=== PATIENT | female | born 1940 | race Caucasian/White ===

== ENCOUNTER 2023-01-08 10:53 | Emergency (ER) | payer MEDICARE, OTHER ==
[2023-01-08 12:07] LABS: BASOPHILS PERCENT AUTO 0.4 % (0.2-1.5); EOSINOPHILS ABSOLUTE AUTO 0.2 x10-3/uL (0.0-0.8); EOSINOPHILS PERCENT AUTO 3.3 % (0.6-8.1); HEMATOCRIT 38.4 % (34.2-48.2); HEMOGLOBIN 13.3 g/dL (11.4-15.5); LYMPHOCYTES ABSOLUTE AUTO 0.8 x10-3/uL (1.0-4.4); LYMPHOCYTES PERCENT AUTO 15.1 % (18.4-52.1); MEAN CORPUSCULAR HEMOGLOBIN 32.2 pg (23.9-33.9); MEAN CORPUSCULAR HGB CONC 34.7 g/dL (31.9-34.8); MEAN CORPUSCULAR VOLUME 92.8 fL (76.7-100.5); MEAN PLATELET VOLUME 7.4 fL (7.1-12.4); MONOCYTES ABSOLUTE AUTO 0.6 x10-3/uL (0.3-1.0); MONOCYTES PERCENT AUTO 11.8 % (4.4-15.7); NEUTROPHILS ABSOLUTE AUTO 3.6 x10-3/uL (1.5-6.3); NEUTROPHILS PERCENT AUTO 69.4 % (30.8-76.2); PLATELET COUNT,PLT 244 x10(3)uL (151-488); RED BLOOD CELL COUNT 4.13 x10(6)uL (3.60-5.20); RED CELL DISTRIBUTION WIDTH 14.2 % (12.3-16.5); WHITE BLOOD CELL COUNT,WBC 5.2 x10-3/uL (3.0-10.3)
[2023-01-08 12:08] LABS: BLOOD UREA NITROGEN,BUN 21 mg/dL (7-18); BUN/CREATININE RATIO 19.1 (9-20); CALCIUM 9.7 mg/dL (8.6-10.2); CARBON DIOXIDE,CO2 32 mmol/L (21-32); CHLORIDE,CL 99 mmol/L (100-110); CREATININE 1.1 mg/dL (0.55-1.02); EST CRCL DRUG DOSING (CG) 32.26 mL/min; ESTIMATED GFR 51 mL/min (>60); GLUCOSE RANDOM 106 mg/dL (80-116); POTASSIUM,K 3.9 mmol/L (3.5-5.3); SODIUM,NA 137 mmol/L (135-145)
[2023-01-08 12:14] LABS: ALANINE AMINOTRANSFERASE,ALT 38 U/L (12-36); ALBUMIN 3.7 g/dL (3.2-4.6); ALKALINE PHOSPHATASE 140 IU/L (56-112); ASPARTATE AMNIOTRANSFERASE,AST 32 IU/L (5-25); BILIRUBIN TOTAL 0.5 mg/dL (0.1-1.3); MAGNESIUM 1.7 mg/dL (1.8-2.5); PROTEIN TOTAL,TP 7.4 g/dL (6.0-8.0)
[2023-01-08 12:16] LABS: C-REACTIVE PROTEIN 0.32 mg/dL (<0.33); TROPONIN I 10.4 pg/mL (4.0-60.3)
[2023-01-08] MEDS ORDERED: Magnesium Sulfate/Water 2 GM in Premix Bag 1 BAG IV ONE (12:29)
[2023-01-08] MEDS ORDERED: Sodium Chloride 0.9% 1,000 ML IV ONE (12:29)
[2023-01-08 12:43] LABS: BILIRUBIN,URINE NEGATIVE (NEGATIVE); GLUCOSE,URINE NORMAL (NORMAL); KETONES,URINE NEGATIVE (NEGATIVE); LEUKOCYTE ESTERASE,URINE NEGATIVE (NEGATIVE); NITRITE,URINE NEGATIVE (NEGATIVE); OCCULT BLOOD,URINE NEGATIVE (NEGATIVE); PROTEIN,URINE NEGATIVE (NEGATIVE); UROBILINOGEN,URINE NORMAL (NEGATIVE)
[2023-01-08 12:49] LABS: APPEARANCE,URINE CLEAR (CLEAR); BACTERIA,URINE MODERATE (NS); COLOR,URINE YELLOW (YELLOW); SQUAMOUS EPITHELIAL CELLS,UR OCCASIONAL (NS,R,O); WBC,URINE 0-5 (0-5)
[2023-01-08] MEDS ORDERED: amLODIPine 5 MG Tab PO ONE (17:43)
== END 2023-01-08 18:49 | disposition home or self-care (01) ==
LOC: FB.ED 10:53
DX: F41.9 Anxiety disorder, unspecified (principal); E86.0 Dehydration; I10 Essential (primary) hypertension; Z88.0 Allergy status to penicillin; Z88.5 Allergy status to narcotic agent; Z88.8 Allergy status to other drugs, medicaments and biological substances
CPT/HCPCS: 36415; 80053; 81001; 83605; 83735; 84484; 85025; 86140; 93005; 93010; 96365; 96366; 99283; 99284-25; A9270-GY; J3475; J7030

== ENCOUNTER 2023-01-11 12:31 | Emergency (ER) | payer MEDICARE ==
[2023-01-11 13:01] LABS: BASOPHILS PERCENT AUTO 0.3 % (0.2-1.5); EOSINOPHILS ABSOLUTE AUTO 0.1 x10-3/uL (0.0-0.8); EOSINOPHILS PERCENT AUTO 1.1 % (0.6-8.1); HEMATOCRIT 41.4 % (34.2-48.2); HEMOGLOBIN 13.9 g/dL (11.4-15.5); MEAN CORPUSCULAR HEMOGLOBIN 31.2 pg (23.9-33.9); MEAN CORPUSCULAR HGB CONC 33.6 g/dL (31.9-34.8); MEAN CORPUSCULAR VOLUME 92.8 fL (76.7-100.5); MEAN PLATELET VOLUME 7.1 fL (7.1-12.4); MONOCYTES ABSOLUTE AUTO 1.1 x10-3/uL (0.3-1.0); MONOCYTES PERCENT AUTO 12.6 % (4.4-15.7); NEUTROPHILS ABSOLUTE AUTO 6.6 x10-3/uL (1.5-6.3); PLATELET COUNT,PLT 284 x10(3)uL (151-488); RED BLOOD CELL COUNT 4.46 x10(6)uL (3.60-5.20); RED CELL DISTRIBUTION WIDTH 14.1 % (12.3-16.5); WHITE BLOOD CELL COUNT,WBC 8.8 x10-3/uL (3.0-10.3)
[2023-01-11 13:14] LABS: A/G RATIO 1.1; ALANINE AMINOTRANSFERASE,ALT 33 U/L (12-36); ALBUMIN 3.9 g/dL (3.2-4.6); ALKALINE PHOSPHATASE 143 IU/L (56-112); ASPARTATE AMNIOTRANSFERASE,AST 31 IU/L (5-25); BILIRUBIN TOTAL 0.5 mg/dL (0.1-1.3); BLOOD UREA NITROGEN,BUN 26 mg/dL (7-18); CALCIUM 10.4 mg/dL (8.6-10.2); CHLORIDE,CL 92 mmol/L (100-110); ESTIMATED GFR 25 mL/min (>60); GLUCOSE RANDOM 125 mg/dL (80-116); POTASSIUM,K 3.7 mmol/L (3.5-5.3); PROTEIN TOTAL,TP 7.6 g/dL (6.0-8.0); SODIUM,NA 133 mmol/L (135-145)
[2023-01-11 13:16] LABS: CARBON DIOXIDE,CO2 42 mmol/L (21-32)
[2023-01-11 13:23] LABS: TROPONIN I 9.1 pg/mL (4.0-60.3); TSH ULTRASENSITIVE 5.91 IU/mL (0.36-3.74)
[2023-01-11] MEDS ORDERED: Sodium Chloride 0.9% 1,000 ML IV ONE (13:38)
== END 2023-01-11 15:21 | disposition home or self-care (01) ==
LOC: FB.ED 12:31
DX: E86.0 Dehydration (principal); N17.9 Acute kidney failure, unspecified; G47.00 Insomnia, unspecified; I10 Essential (primary) hypertension; Z88.0 Allergy status to penicillin; Z88.5 Allergy status to narcotic agent; Z88.8 Allergy status to other drugs, medicaments and biological substances
CPT/HCPCS: 36415; 80053; 84443; 84484; 85025; 93005; 96360; 99284; J7030

== ENCOUNTER 2023-01-24 01:18 | Emergency (ER) | payer MEDICARE ==
[2023-01-24] MEDS ORDERED: Sodium Chloride 0.9% 10 ML Syringe FLUSH PRN (01:38)
[2023-01-24] MEDS ORDERED: Sodium Chloride 0.9% 1,000 ML IV ONE (01:49)
[2023-01-24] MEDS ORDERED: Ondansetron 4 MG/2 ML SDV IVPUSH ONE (01:49)
[2023-01-24 01:59] LABS: BLOOD UREA NITROGEN,BUN 19 mg/dL (7-18); BUN/CREATININE RATIO 17.3 (9-20); CALCIUM 9.8 mg/dL (8.6-10.2); CARBON DIOXIDE,CO2 33 mmol/L (21-32); CHLORIDE,CL 98 mmol/L (100-110); CREATININE 1.1 mg/dL (0.55-1.02); EST CRCL DRUG DOSING (CG) 33.74 mL/min; ESTIMATED GFR 51 mL/min (>60); GLUCOSE RANDOM 119 mg/dL (80-116); POTASSIUM,K 4.5 mmol/L (3.5-5.3); SODIUM,NA 134 mmol/L (135-145)
[2023-01-24 02:01] LABS: C-REACTIVE PROTEIN 0.17 mg/dL (<0.33)
[2023-01-24 02:05] LABS: ALANINE AMINOTRANSFERASE,ALT 55 U/L (12-36); ALBUMIN 3.5 g/dL (3.2-4.6); ALKALINE PHOSPHATASE 144 IU/L (56-112); ASPARTATE AMNIOTRANSFERASE,AST 40 IU/L (5-25); BILIRUBIN TOTAL 0.4 mg/dL (0.1-1.3); MAGNESIUM 1.7 mg/dL (1.8-2.5); PROTEIN TOTAL,TP 7.1 g/dL (6.0-8.0)
[2023-01-24 02:09] LABS: BASOPHILS PERCENT AUTO 0.3 % (0.2-1.5); EOSINOPHILS ABSOLUTE AUTO 0.1 x10-3/uL (0.0-0.8); EOSINOPHILS PERCENT AUTO 1.2 % (0.6-8.1); HEMATOCRIT 36.5 % (34.2-48.2); HEMOGLOBIN 12.3 g/dL (11.4-15.5); LYMPHOCYTES ABSOLUTE AUTO 0.8 x10-3/uL (1.0-4.4); LYMPHOCYTES PERCENT AUTO 9.5 % (18.4-52.1); MEAN CORPUSCULAR HEMOGLOBIN 31.3 pg (23.9-33.9); MEAN CORPUSCULAR HGB CONC 33.8 g/dL (31.9-34.8); MEAN CORPUSCULAR VOLUME 92.8 fL (76.7-100.5); MEAN PLATELET VOLUME 7.4 fL (7.1-12.4); MONOCYTES ABSOLUTE AUTO 0.7 x10-3/uL (0.3-1.0); MONOCYTES PERCENT AUTO 8.2 % (4.4-15.7); NEUTROPHILS ABSOLUTE AUTO 6.8 x10-3/uL (1.5-6.3); NEUTROPHILS PERCENT AUTO 80.8 % (30.8-76.2); PLATELET COUNT,PLT 279 x10(3)uL (151-488); RED BLOOD CELL COUNT 3.94 x10(6)uL (3.60-5.20); RED CELL DISTRIBUTION WIDTH 14.1 % (12.3-16.5); WHITE BLOOD CELL COUNT,WBC 8.4 x10-3/uL (3.0-10.3)
[2023-01-24 02:10] LABS: BILIRUBIN,URINE NEGATIVE (NEGATIVE); GLUCOSE,URINE NORMAL (NORMAL); KETONES,URINE NEGATIVE (NEGATIVE); LEUKOCYTE ESTERASE,URINE SMALL (NEGATIVE); NITRITE,URINE NEGATIVE (NEGATIVE); OCCULT BLOOD,URINE NEGATIVE (NEGATIVE); PROTEIN,URINE NEGATIVE (NEGATIVE); UROBILINOGEN,URINE NORMAL (NEGATIVE)
[2023-01-24 02:13] LABS: APPEARANCE,URINE CLOUDY (CLEAR); COLOR,URINE YELLOW (YELLOW); RBC,URINE 0-5 (0-5); SQUAMOUS EPITHELIAL CELLS,UR FEW (NS,R,O)
[2023-01-24 02:14] LABS: AMORPHOUS SEDIMENT,URINE FEW; BACTERIA,URINE MANY (NS)
[2023-01-24] MEDS ORDERED: Lidocaine 2% HCl 6 ML Jel ONE (04:06)
[2023-01-24] MEDS ORDERED: Sodium Chloride 0.9% 1,000 ML IV SCH (04:30)
== END 2023-01-24 05:50 ==
LOC: FB.ED 01:18
DX: K56.699 Other intestinal obstruction unspecified as to partial versus complete obstruction (principal); E86.0 Dehydration; K21.9 Gastro-esophageal reflux disease without esophagitis; Z88.0 Allergy status to penicillin; Z88.8 Allergy status to other drugs, medicaments and biological substances; Z88.5 Allergy status to narcotic agent; Z79.899 Other long term (current) drug therapy
CPT/HCPCS: 36415; 43752; 71045; 74176; 80053; 81001; 83605; 83690; 83735; 85025; 86140; 87086; 87088; 87186; 96361; 96374; 99285; A9270; J2405; J7030

== ENCOUNTER 2023-06-23 06:08 | Emergency (ER) | payer MEDICARE ==
[2023-06-23] MEDS ORDERED: Ondansetron 4 MG/2 ML SDV IVPUSH ONE (06:24)
[2023-06-23] MEDS ORDERED: Sodium Chloride 0.9% 10 ML Syringe FLUSH PRN (06:27)
[2023-06-23] MEDS ORDERED: Sodium Chloride 0.9% 1,000 ML IV SCH (06:30)
[2023-06-23 06:48] LABS: BASOPHILS PERCENT AUTO 0.4 % (0.2-1.5); BLOOD UREA NITROGEN,BUN 15 mg/dL (7-18); BUN/CREATININE RATIO 18.8 (9-20); CALCIUM 10.3 mg/dL (8.6-10.2); CARBON DIOXIDE,CO2 31 mmol/L (21-32); CHLORIDE,CL 94 mmol/L (100-110); CREATININE 0.8 mg/dL (0.55-1.02); EOSINOPHILS ABSOLUTE AUTO 0.1 x10-3/uL (0.0-0.8); EOSINOPHILS PERCENT AUTO 1.4 % (0.6-8.1); ESTIMATED GFR 74 mL/min (>60); GLUCOSE RANDOM 125 mg/dL (80-116); HEMATOCRIT 41.9 % (34.2-48.2); HEMOGLOBIN 14.1 g/dL (11.4-15.5); LYMPHOCYTES PERCENT AUTO 11.1 % (18.4-52.1); MEAN CORPUSCULAR HEMOGLOBIN 31.1 pg (23.9-33.9); MEAN CORPUSCULAR HGB CONC 33.7 g/dL (31.9-34.8); MEAN CORPUSCULAR VOLUME 92.2 fL (76.7-100.5); MEAN PLATELET VOLUME 7.3 fL (7.1-12.4); MONOCYTES ABSOLUTE AUTO 0.7 x10-3/uL (0.3-1.0); MONOCYTES PERCENT AUTO 8.2 % (4.4-15.7); NEUTROPHILS PERCENT AUTO 78.9 % (30.8-76.2); PLATELET COUNT,PLT 257 x10(3)uL (151-488); POTASSIUM,K 3.7 mmol/L (3.5-5.3); RED BLOOD CELL COUNT 4.55 x10(6)uL (3.60-5.20); RED CELL DISTRIBUTION WIDTH 14.3 % (12.3-16.5); SODIUM,NA 132 mmol/L (135-145); WHITE BLOOD CELL COUNT,WBC 8.9 x10-3/uL (3.0-10.3)
[2023-06-23 07:00] LABS: A/G RATIO 0.9; ALANINE AMINOTRANSFERASE,ALT 30 U/L (12-36); ALBUMIN 3.6 g/dL (3.2-4.6); ALKALINE PHOSPHATASE 106 IU/L (56-112); ASPARTATE AMNIOTRANSFERASE,AST 28 IU/L (5-25); BILIRUBIN TOTAL 0.7 mg/dL (0.1-1.3); PROTEIN TOTAL,TP 7.7 g/dL (6.0-8.0)
[2023-06-23] MEDS: Morphine 2 MG/ML SYRINGE IVPUSH ONE ×2 (07:31→07:37)
[2023-06-23] MEDS ORDERED: Ketorolac 30 MG/ML SDV IVPUSH ONE (07:35)
[2023-06-23] MEDS ORDERED: Morphine 2 MG/ML SYRINGE IVPUSH ONE (07:53)
[2023-06-23 08:24] LABS: BILIRUBIN,URINE NEGATIVE (NEGATIVE); GLUCOSE,URINE NORMAL (NORMAL); KETONES,URINE NEGATIVE (NEGATIVE); LEUKOCYTE ESTERASE,URINE NEGATIVE (NEGATIVE); NITRITE,URINE NEGATIVE (NEGATIVE); OCCULT BLOOD,URINE NEGATIVE (NEGATIVE); PROTEIN,URINE NEGATIVE (NEGATIVE); UROBILINOGEN,URINE NORMAL (NEGATIVE)
[2023-06-23 08:29] LABS: APPEARANCE,URINE SLIGHTLY CLOUDY (CLEAR); BACTERIA,URINE MANY (NS); COLOR,URINE YELLOW (YELLOW); SQUAMOUS EPITHELIAL CELLS,UR FEW (NS,R,O); WBC,URINE 0-5 (0-5)
== END 2023-06-23 14:00 | disposition home or self-care (01) ==
LOC: FB.ED 06:08
DX: K56.7 Ileus, unspecified (principal); I10 Essential (primary) hypertension; Z90.49 Acquired absence of other specified parts of digestive tract; Z79.899 Other long term (current) drug therapy; Z88.0 Allergy status to penicillin; Z88.1 Allergy status to other antibiotic agents; Z88.5 Allergy status to narcotic agent; Z88.8 Allergy status to other drugs, medicaments and biological substances
CPT/HCPCS: 36415; 74176; 80053; 81001; 83690; 84484; 85025; 86140; 87086; 87088; 93005; 96361; 96374; 96375; 99284; J1885; J2270; J2405; J3490; J7030; 87186; 93010

== ENCOUNTER 2023-07-13 12:57 | Emergency (ER) | payer MEDICARE, MEDICAID ==
[2023-07-13 13:42] LABS: BILIRUBIN,URINE NEGATIVE (NEGATIVE); GLUCOSE,URINE NORMAL (NORMAL); KETONES,URINE NEGATIVE (NEGATIVE); LEUKOCYTE ESTERASE,URINE NEGATIVE (NEGATIVE); NITRITE,URINE NEGATIVE (NEGATIVE); OCCULT BLOOD,URINE NEGATIVE (NEGATIVE); PROTEIN,URINE NEGATIVE (NEGATIVE); UROBILINOGEN,URINE NORMAL (NEGATIVE)
[2023-07-13 13:46] LABS: APPEARANCE,URINE CLEAR (CLEAR); COLOR,URINE YELLOW (YELLOW); SQUAMOUS EPITHELIAL CELLS,UR OCCASIONAL (NS,R,O); WBC,URINE 0-5 (0-5)
[2023-07-13 13:47] LABS: BACTERIA,URINE OCCASIONAL (NS)
== END 2023-07-13 15:10 | disposition home or self-care (01) ==
LOC: FB.ED 12:57
DX: R35.89 Other polyuria (principal); I10 Essential (primary) hypertension; Z88.1 Allergy status to other antibiotic agents; Z88.5 Allergy status to narcotic agent; Z88.8 Allergy status to other drugs, medicaments and biological substances; Z86.19 Personal history of other infectious and parasitic diseases; Z79.899 Other long term (current) drug therapy
CPT/HCPCS: 81001; 99283